=== PATIENT | male | born 1945 | race Caucasian/White ===

== ENCOUNTER 2019-12-13 10:47 | Emergency (ER) | payer MEDICARE, OTHER ==
[~2019-12-13] VITALS: Ht 185.4 cm; Wt 92.8 kg
[2019-12-13 12:16] LABS: BASOPHILS % (AUTO) 0.4 % (0-1); EOSINOPHILS # (AUTO) 0.2 X10'3 (0-0.9); EOSINOPHILS % (AUTO) 3.2 % (0-6); HEMATOCRIT 48.6 % (42.0-52.0); HEMOGLOBIN 16.7 g/dl (14.0-17.9); LYMPHOCYTES # (AUTO) 1.1 X10'3 (1.1-4.8); LYMPHOCYTES % (AUTO) 15.5 % (21-51); MEAN CORPUSCULAR HEMOGLOBIN 31.7 PG (27.0-31.0); MEAN CORPUSCULAR HGB CONC 34.3 g/dL (33.0-36.5); MEAN CORPUSCULAR VOLUME 92.3 FL (78-98); MEAN PLATELET VOLUME 7.7 FL (7.4-10.4); MONOCYTES # (AUTO) 0.7 X10'3 (0-0.9); NEUTROPHILS # (AUTO) 4.9 X10'3 (1.8-7.7); NEUTROPHILS % (AUTO) 70.9 % (42-75); PLATELET COUNT 209 X10'3 (140-440); RED BLOOD COUNT 5.26 X10'6 (4.70-6.10); RED CELL DISTRIBUTION WIDTH 13.2 % (11.5-14.5)
[2019-12-13 12:28] LABS: ALANINE AMINOTRANSFERASE 59 U/L (12-78); ALBUMIN 4.1 G/DL (3.4-5.0); ALKALINE PHOSPHATASE 124 IU/L (46-116); ANION GAP 10 (8-16); ASPARTATE AMINO TRANSFERASE 38 U/L (10-37); BILIRUBIN,TOTAL 0.7 MG/DL (0.1-1.0); BLOOD UREA NITROGEN 29 MG/DL (7-18); BUN/CREATININE RATIO 21.3 (5.4-32.0); CALCIUM 9.6 MG/DL (8.5-10.1); CHLORIDE 106 MMOL/L (99-107); CREATININE 1.36 MG/DL (0.60-1.10); GLUCOSE 104 MG/DL (70-104); POTASSIUM 4.5 MMOL/L (3.5-5.1); SODIUM 136 MMOL/L (135-145); TOTAL PROTEIN 8.3 G/DL (6.4-8.2); eGFR 52 ML/MIN
[2019-12-13] MEDS ORDERED: normal saline 1000ml 1,000 ML IV ONE (12:55)
[2019-12-13 14:38] LABS: CLARITY,URINE CLEAR (Clear); COLOR,URINE YELLOW (Yellow); GLUCOSE, URINE NEGATIVE (Neg); KETONES,URINE NEGATIVE (Neg); LEUKOCYTE ESTERASE ,URINE NEGATIVE (Neg); NITRITES, URINE NEGATIVE (Neg); OCCULT BLOOD,URINE NEGATIVE (Neg); PROTEIN,URINE NEGATIVE (Neg); UROBILINOGEN,URINE 0.2 E.U/dL (0.2-1.0)
[2019-12-13 14:41] LABS: UA COLLECTION TYPE CLN CATCH MIDSTREAM
[2019-12-13 16:09] VITALS: BP 123/72
[2019-12-14] MEDS ORDERED: CARB15DR91 LEFT EAR (20:27)
[2019-12-14] MEDS ORDERED: LISI40TA4 PO ×2 (20:27→23:49)
[2019-12-14] MEDS ORDERED: HYDR-3686 PO ×2 (20:27→23:49)
[2019-12-14] MEDS ORDERED: [UNRECOGNIZED DRUG - OTHER] PO (20:27)
[2019-12-14] MEDS ORDERED: ASPI-83 PO (20:27)
[2019-12-14] MEDS ORDERED: FLUO-211 PO (20:27)
[2019-12-14] MEDS ORDERED: DIPH25CA52 PO (20:27)
[2019-12-14] MEDS ORDERED: [UNRECOGNIZED DRUG - OTHER] PO (23:49)
[2019-12-14] MEDS ORDERED: FLUO-12 PO (23:49)
[2019-12-14] MEDS ORDERED: ASPI-1265 PO (23:49)
== END 2019-12-13 16:12 | disposition home or self-care (01) ==
LOC: ER 10:48
DX: R53.1 Weakness (principal)
CPT/HCPCS: 36415; 71045; 80053; 81003; 84443; 84484; 85025; 93005; 99285; J7030

== ENCOUNTER 2019-12-14 16:56 | Emergency (ER) | payer MEDICARE, OTHER ==
[~2019-12-14] VITALS: Ht 185.4 cm; Wt 90.0 kg
--- NOTE | 2019-12-14 17:59 | NUR ---
Per [facility] 5150 as written is not valid, due to being written by a provider not recognized by [facility] to write 5150's
[2019-12-14 18:07] LABS: BASOPHILS % (AUTO) 0.6 % (0-1); EOSINOPHILS # (AUTO) 0.4 X10'3 (0-0.9); EOSINOPHILS % (AUTO) 4.7 % (0-6); HEMATOCRIT 44.7 % (42.0-52.0); HEMOGLOBIN 15.3 g/dl (14.0-17.9); LYMPHOCYTES # (AUTO) 1.4 X10'3 (1.1-4.8); LYMPHOCYTES % (AUTO) 17.8 % (21-51); MEAN CORPUSCULAR HEMOGLOBIN 31.9 PG (27.0-31.0); MEAN CORPUSCULAR HGB CONC 34.3 g/dL (33.0-36.5); MEAN PLATELET VOLUME 7.6 FL (7.4-10.4); MONOCYTES # (AUTO) 0.9 X10'3 (0-0.9); MONOCYTES % (AUTO) 11.7 % (2-12); NEUTROPHILS # (AUTO) 5.3 X10'3 (1.8-7.7); NEUTROPHILS % (AUTO) 65.2 % (42-75); PLATELET COUNT 212 X10'3 (140-440); RED BLOOD COUNT 4.81 X10'6 (4.70-6.10); RED CELL DISTRIBUTION WIDTH 13.2 % (11.5-14.5); WHITE BLOOD COUNT 8.1 X10'3 (4.5-11.0)
[2019-12-14 18:19] LABS: ALANINE AMINOTRANSFERASE 51 U/L (12-78); ALBUMIN 3.8 G/DL (3.4-5.0); ALKALINE PHOSPHATASE 124 IU/L (46-116); ANION GAP 12 (8-16); ASPARTATE AMINO TRANSFERASE 29 U/L (10-37); BILIRUBIN,TOTAL 0.5 MG/DL (0.1-1.0); BLOOD UREA NITROGEN 33 MG/DL (7-18); BUN/CREATININE RATIO 25.2 (5.4-32.0); CALCIUM 9.5 MG/DL (8.5-10.1); CHLORIDE 106 MMOL/L (99-107); CREATININE 1.31 MG/DL (0.60-1.10); GLUCOSE 99 MG/DL (70-104); POTASSIUM 4.4 MMOL/L (3.5-5.1); SODIUM 138 MMOL/L (135-145); TOTAL CARBON DIOXIDE 19.6 MMOL/L (24-32); TOTAL PROTEIN 7.8 G/DL (6.4-8.2); eGFR 54 ML/MIN
[2019-12-14 18:22] LABS: ETHANOL < 0.010 GM/DL (0.0-0.010)
[2019-12-14] MEDS ORDERED: LORazepam 0.5 MG tablet PO ONE (19:20)
[2019-12-14 19:39] LABS: URINE AMPHETAMINE SCREEN NEGATIVE (Neg); URINE BARBITUATE SCREEN NEGATIVE (Neg); URINE BENZODIAZEPINES SCREEN NEGATIVE (Neg); URINE CANNABINOID SCREEN NEGATIVE (Neg); URINE COCAINE SCREEN NEGATIVE (Neg); URINE METHADONE SCREEN NEGATIVE (Neg); URINE OPIATE SCREEN NEGATIVE (Neg); URINE PHENCYCLIDINE SCREEN NEGATIVE (Neg)
--- NOTE | 2019-12-14 20:00 | NUR ---
patient supine in bed tech nathaniel at bedside charting patient belongings, patients rr even un labored no observable s/s of acute stress at this time
[2019-12-14] MEDS ORDERED: DIPH25CA52 PO (20:27)
[2019-12-14] MEDS ORDERED: LISI40TA4 PO ×2 (20:27→23:49)
[2019-12-14] MEDS ORDERED: HYDR-3686 PO ×2 (20:27→23:49)
[2019-12-14] MEDS ORDERED: [UNRECOGNIZED DRUG - OTHER] PO (20:27)
[2019-12-14] MEDS ORDERED: CARB15DR91 LEFT EAR (20:27)
[2019-12-14] MEDS ORDERED: FLUO-211 PO (20:27)
[2019-12-14] MEDS ORDERED: ASPI-83 PO (20:27)
--- NOTE | 2019-12-14 21:00 | NUR ---
PT ARRIVED AT THE UNIT ACCOMPANIED BY NITHYA WOODS. PT IS A VERY PLEASANT COOPERATIVE GENTLEMAN WHO WAS CAME FROM THE [place] WHERE THEY ADVISED HIM TO COME HERE DUE TO HIM FEELING DEPRESSED AND HOPELESS. PT STATES THAT HE MOVED HERE AND HAS NOT BEEN ABLE TO FIND A PLACE TO STAY. HE STATES WHEN HE ARRIVED TO [place], HE GOT A HOTEL ROOM AND WAS FEELING DEPRESSED AND ANXIOUS AND SLEPT FOR THREE DAYS STRAIGHT AND DID NOT HAVE ANY ENERGY TO DO ANYTHING. HE STATES THAT HE TOOK 200MG OF ATARAX THIS EVENING AND THAT MADE HIM SICK TO HIS STOMACH AND DID NOT HELP WITH THE ANXIETY. PT DENIES ANY S/I, H/I AND STATES THAT MAINLY HE JUST FEELS HOPELESS DUE TO DIFFERENT STRESSORS IN HIS LIFE AND WANTS TO GET SOME REST.
--- NOTE | 2019-12-14 22:30 | NUR ---
PT IS LAYING IN HIS BED ON HIS LEFT SIDE AND APPEARS TO BE SLEEPING. RESPIRATIONS ARE EVEN AND UNLABORED.
[2019-12-14] MEDS ORDERED: [UNRECOGNIZED DRUG - OTHER] PO (23:49)
[2019-12-14] MEDS ORDERED: FLUO-12 PO (23:49)
[2019-12-14] MEDS ORDERED: ASPI-1265 PO (23:49)
[2019-12-15] MEDS ORDERED: hydrOXYzine 25 MG tablet PO PRN
--- NOTE | 2019-12-15 00:33 | NUR ---
PT IS LAYING ON HIS BACK AND APPEARS TO BE SLEEPING. DOES NOT APPEAR TO BE IN ANY DISTRESS. RESPIRATIONS ARE EVEN AND UNLABORED.
--- NOTE | 2019-12-15 03:00 | NUR ---
PACKET WAS SENT TO [facility].
--- NOTE | 2019-12-15 03:31 | NUR ---
PT CONTINUES TO SLEEP ON HIS LEFT SIDE. RESPIRATIONS ARE EVEN AND UNLABORED.
--- NOTE | 2019-12-15 05:25 | NUR ---
PT IS LAYING ON HIS BACK AND APPEARS TO BE SLEEPING. RESPIRATIONS ARE EVEN AND UNLABORED.
--- NOTE | 2019-12-15 07:31 | NUR ---
PACKET FAXED TO [facility]
[2019-12-15] MEDS: FLUoxetine 20mg capsule PO SCH (08:27)
[2019-12-15] MEDS: aspirin 81mg tab.chew PO SCH (08:27)
[2019-12-15] MEDS: multivitamins, therapeutics tablet PO SCH (08:28)
[2019-12-15] MEDS: lisinopril 20mg tablet PO SCH (08:29)
[2019-12-15 08:51] LABS: CLARITY,URINE CLEAR (Clear); COLOR,URINE YELLOW (Yellow); GLUCOSE, URINE NEGATIVE (Neg); KETONES,URINE NEGATIVE (Neg); LEUKOCYTE ESTERASE ,URINE NEGATIVE (Neg); NITRITES, URINE NEGATIVE (Neg); OCCULT BLOOD,URINE TRACE-INTACT (Neg); PH,URINE 5.5 (4.8-8.0); PROTEIN,URINE NEGATIVE (Neg); UROBILINOGEN,URINE 0.2 E.U/dL (0.2-1.0)
[2019-12-15 08:54] LABS: UA COLLECTION TYPE CLN CATCH MIDSTREAM
[2019-12-15 09:00] LABS: WBC,URINE 0-4 /HPF (0-4)
[2019-12-15 09:01] LABS: BACTERIA,URINE NONE SEEN /HPF (Neg); MUCUS STRANDS FEW /LPF (Neg); RBC,URINE 0-2 /HPF (0-2); SQUAMOUS EPITHELIAL CELL,UR FEW /LPF (FEW)
--- NOTE | 2019-12-15 10:07 | NUR ---
[facility] AT BEDSIDE EVALUATING PT.
--- NOTE | 2019-12-15 11:01 | NUR ---
MARY FROM [facility] IS HOLDING PT ON A 5150 AND LOOKING FOR PLACEMENT.
[2019-12-15] MEDS: LORazepam 0.5 MG tablet PO PRN (11:54)
--- NOTE | 2019-12-15 12:36 | NUR ---
[facility] TAD OFFICE CALLED REQUESTING A COPY OF PT'S [id number] FAXED TO THEM. [phone] FAXED REQUESTED
--- NOTE | 2019-12-15 12:42 | NUR ---
PT SLEEPING, NO S/S OF DISTRESS NOTED.
--- NOTE | 2019-12-15 17:28 | NUR ---
PT SLEEPING, NO S/S OF DISTRESS
--- NOTE | 2019-12-15 21:28 | NUR ---
pt is sleeping, no s/s of distress noted.
--- NOTE | 2019-12-15 23:26 | NUR ---
pt is sleeping on his left side, rr unlabored, no s/s of distress noted.
--- NOTE | 2019-12-16 01:26 | NUR ---
pt is sleeping, rr unlabored, no s/s of distress noted.
--- NOTE | 2019-12-16 03:37 | NUR ---
Pt is sleeping, no s/s of distress noted.
--- NOTE | 2019-12-16 04:46 | NUR ---
pt continues to sleep, rr unlabored, no s/s of distress noted.
--- NOTE | 2019-12-16 06:44 | NUR ---
ASSUMED CARE FROM JAMESON RN, PT IS CURRENTLY SLEEPING ON LEFT SIDE, RESPIRATIONS SPONTANEOUS, EVEN AND UNLABORED, NO S/S OF DISTRESS, DISCOMFORT OR AGITATION, PT IN LINE OF SITE OF NURSES STATION. WILL CONTINUE TO MONITOR.
--- NOTE | 2019-12-16 08:08 | NUR ---
PT IS SLEEPING ON BACK, RESPIRATIONS SPONTANEOUS, EVEN AND UNLABORED, NO S/S OF DISTRESS, DISCOMFORT OR AGITATION, PT IN LINE OF SITE OF NURSES STATION. WILL CONTINUE TO MONITOR.
[2019-12-16] MEDS: aspirin 81mg tab.chew PO SCH (08:15)
[2019-12-16] MEDS: FLUoxetine 20mg capsule PO SCH (08:16)
[2019-12-16] MEDS: lisinopril 20mg tablet PO SCH (08:16)
[2019-12-16] MEDS: multivitamins, therapeutics tablet PO SCH (08:16)
--- NOTE | 2019-12-16 08:21 | NUR ---
LUNCH TRAY PLACED AT [facility], PT IS SITTING UP EATING NOW, MEDICATED PT PER ORDERS.
--- NOTE | 2019-12-16 09:49 | NUR ---
PT FINISHED BREAKFAST TRAY, AND PT IS NOW SLEEPING ON RIGHT SIDE, NO S/S OF DISTRESS, DISCOMFORT, OR AGITATION, PT IN LINE OF SITE OF NURSES STATION, WILL CONTINUE TO MONITOR.
--- NOTE | 2019-12-16 11:04 | NUR ---
PT IS SLEEPING ON LEFT SIDE, NO S/S OF DISTRESS, DISCOMFORT, OR AGITATION, PT IN LINE OF SITE OF NURSES STATION, WILL CONTINUE TO MONITOR.
--- NOTE | 2019-12-16 15:42 | NUR ---
RECEIVED CALL FROM [facility], GAVE REPORT FOR REVIEW AND PRESENTATION TO PROVIDER.
--- NOTE | 2019-12-16 16:14 | NUR ---
RECEIVED CALL FROM TAD OFFICE, PT ACCEPTED BY [facility] AT [address] JEFFERSON [address], UNKNOWN SENIOR CARE MANAGER PROFESSIONAL SKATER TIME BUT TAD OFFICE WILL CALL BACK BY 6 WITH UPDATE OF SENIOR CARE MANAGER ARRIVAL STATUS.
--- NOTE | 2019-12-16 16:26 | NUR ---
RECEIVED CALL FROM [facility]LE [facility]ESS[facility] TO ARRIVE FOR TRANSPORT OF AN[facility] APPROX [phone]
--- NOTE | 2019-12-16 16:47 | NUR ---
PT IS RESTING ON LEFT SIDE, RESPIRATIONS SPONTANEOUS, EVEN AND UNLABORED, NO S/S OF DISTRESS, DISCOMFORT OR AGITATION, PT IN LINE OF SITE OF NURSES STATION, WILL CONTNIUE TO MONITOR
[2019-12-16] MEDS: LORazepam 0.5 MG tablet PO PRN (17:26)
--- NOTE | 2019-12-16 17:27 | NUR ---
PT FEELING ANXIOUS REQUESTED [facility], PT MEDICATED WITH [facility] PRN PER [facility], PT UPDATED TO PLAN FOR TRANSPORT [phone] [facility] TO [facility], PT AGREEABLE TO PLAN
--- NOTE | 2019-12-16 18:59 | NUR ---
Nurse to nurse report to [facility].
[2019-12-16 19:47] VITALS: BP 158/85
== END 2019-12-16 19:50 ==
LOC: ER 16:57
DX: R45.851 Suicidal ideations (principal); F41.9 Anxiety disorder, unspecified; F32.9 Major depressive disorder, single episode, unspecified; Z95.1 Presence of aortocoronary bypass graft; Z79.2 Long term (current) use of antibiotics; Z79.899 Other long term (current) drug therapy
CPT/HCPCS: 36415; 80053; 80305; 80320; 81001; 85025; 99285

== ENCOUNTER 2020-01-11 15:18 | Emergency (ER) | payer OTHER ==
[~2020-01-11] VITALS: Ht 185.4 cm; Wt 95.5 kg
[~2020-01-11 15:18] MED LIST: ALBU8.5H8 INH; ASPI-1265 PO; ASPI-611 PO; CHLO25TA2 PO; HYDR-3686 PO; LISI40TA4 PO; METO-395 PO; MULT-384 PO; NITR0.4T51 SL; ROSU40TA PO
--- NOTE | 2020-01-11 15:43 | NUR ---
Zuleika dozier in EDM - 01/11/20 at 1546 by VENUS Vandana [facility] SW called seeking pt's permission to contact his family which pt provided verbal okay. Per Vandana, pt was dc'd to [facility] where he had a BM and was unable to clean up after himself so EMS was called.
[2020-01-11 16:46] LABS: BASOPHILS # (AUTO) 0.1 X10'3 (0-0.2); BASOPHILS % (AUTO) 0.7 % (0-1); EOSINOPHILS # (AUTO) 0.2 X10'3 (0-0.9); EOSINOPHILS % (AUTO) 2.4 % (0-6); HEMATOCRIT 46.2 % (42.0-52.0); HEMOGLOBIN 15.6 g/dl (14.0-17.9); LYMPHOCYTES # (AUTO) 1.5 X10'3 (1.1-4.8); LYMPHOCYTES % (AUTO) 14.7 % (21-51); MEAN CORPUSCULAR HEMOGLOBIN 31.3 PG (27.0-31.0); MEAN CORPUSCULAR HGB CONC 33.8 g/dL (33.0-36.5); MEAN CORPUSCULAR VOLUME 92.8 FL (78-98); MEAN PLATELET VOLUME 7.8 FL (7.4-10.4); MONOCYTES # (AUTO) 1.4 X10'3 (0-0.9); MONOCYTES % (AUTO) 14.3 % (2-12); NEUTROPHILS # (AUTO) 6.9 X10'3 (1.8-7.7); NEUTROPHILS % (AUTO) 67.9 % (42-75); PLATELET COUNT 214 X10'3 (140-440); RED BLOOD COUNT 4.98 X10'6 (4.70-6.10); RED CELL DISTRIBUTION WIDTH 13.1 % (11.5-14.5); WHITE BLOOD COUNT 10.1 X10'3 (4.5-11.0)
[2020-01-11 17:04] LABS: ALANINE AMINOTRANSFERASE 38 U/L (12-78); ALBUMIN 3.8 G/DL (3.4-5.0); ALKALINE PHOSPHATASE 119 IU/L (46-116); ANION GAP 12 (8-16); ASPARTATE AMINO TRANSFERASE 29 U/L (10-37); BILIRUBIN,TOTAL 0.9 MG/DL (0.1-1.0); BLOOD UREA NITROGEN 37 MG/DL (7-18); BUN/CREATININE RATIO 16.9 (5.4-32.0); CALCIUM 9.6 MG/DL (8.5-10.1); CHLORIDE 105 MMOL/L (99-107); CREATININE 2.19 MG/DL (0.60-1.10); GLUCOSE 103 MG/DL (70-104); SODIUM 141 MMOL/L (135-145); TOTAL CARBON DIOXIDE 23.9 MMOL/L (24-32); TOTAL PROTEIN 7.6 G/DL (6.4-8.2); eGFR 30 ML/MIN
[2020-01-11] MEDS ORDERED: normal saline 1000ML IV soln IVB ONE (17:40)
--- NOTE | 2020-01-11 18:47 | NUR ---
2nd liter ns bolus nfusing. then pt to be discharged. pt is agreeable to this plan. no cp currently. states about every 20 min he gets a sharp 4 out of 10 cp to his right chest, non radiating, and after a few mni it goes away. Reports no other syptoms. current vss.
[2020-01-11 19:18] VITALS: BP 128/53
== END 2020-01-11 19:21 | disposition home or self-care (01) ==
LOC: ER 15:18
DX: N17.9 Acute kidney failure, unspecified (principal); E86.0 Dehydration; I25.10 Atherosclerotic heart disease of native coronary artery without angina pectoris; I10 Essential (primary) hypertension; I25.2 Old myocardial infarction; F41.9 Anxiety disorder, unspecified; F32.9 Major depressive disorder, single episode, unspecified; Z95.1 Presence of aortocoronary bypass graft; Z79.82 Long term (current) use of aspirin; Z79.899 Other long term (current) drug therapy
CPT/HCPCS: 36415; 71045; 80053; 84484; 85025; 93005; 96360; 99285; J7030

== ENCOUNTER 2020-07-04 09:04 | Emergency (ER) | payer OTHER, MEDICARE ==
[~2020-07-04] VITALS: Ht 185.4 cm; Wt 98.2 kg
[~2020-07-04 09:04] MED LIST changes: -ASPI-611 PO
[2020-07-04 09:16] VITALS: BP 150/90
[2020-07-04] MEDS ORDERED: ciprofloxacin 250mg tablet PO ONE (10:05)
[2020-07-04] MEDS ORDERED: CIPR-230 PO (10:44)
== END 2020-07-04 10:57 | disposition home or self-care (01) ==
LOC: ER 09:04
DX: L03.115 Cellulitis of right lower limb (principal); I44.7 Left bundle-branch block, unspecified; J06.9 Acute upper respiratory infection, unspecified; B09 Unspecified viral infection characterized by skin and mucous membrane lesions; I25.10 Atherosclerotic heart disease of native coronary artery without angina pectoris; I50.9 Heart failure, unspecified; I11.0 Hypertensive heart disease with heart failure; I25.2 Old myocardial infarction; F41.9 Anxiety disorder, unspecified; F32.9 Major depressive disorder, single episode, unspecified; Z95.1 Presence of aortocoronary bypass graft; Z79.82 Long term (current) use of aspirin; Z79.899 Other long term (current) drug therapy
CPT/HCPCS: 71045; 93005; 99283